=== PATIENT | female | born 1955 | race Caucasian/White ===

== ENCOUNTER 2023-09-22 21:35 | Emergency (ER) | payer MEDICARE, OTHER ==
[~2023-09-22] VITALS: Ht 165.1 cm; Wt 64.0 kg
[2023-09-22] MEDS: MAGNESIUM 2 G PREMIX 50 ML IV ONE (22:24)
[2023-09-22] MEDS: METHYLPREDNISOLONE SOD SUCC 125MG/2ML (ACT-O-VIAL) IV ONE (22:25)
[2023-09-22] MEDS: IPRATROPIUM/ALBUTEROL 0.5-3(2.5)MG/3ML NEB HHN ONE (22:28)
[2023-09-22 22:29] VITALS: PULSE 93; RESP 24; O2SAT 100
[2023-09-22] MEDS: ALBUTEROL (0.083%) 2.5MG/3ML NEB HHN ONE (22:29)
[2023-09-22 23:06] LABS: BASOPHILS % 0.5 % (0.0-2.0); EOSINOPHILS % 1.6 % (0.0-5.0); HEMATOCRIT. 39.5 % (36.0-48.0); HEMOGLOBIN. 13.4 g/dL (12.0-16.0); LYMPHOCYTES % 21.1 % (20.0-50.0); MEAN CORPUSCULAR HEMOGLOBIN 30.9 pg (28.0-32.0); MEAN CORPUSCULAR HGB CONC 33.8 g/dL (31.0-37.0); MEAN CORPUSCULAR VOLUME 91.3 fL (81.0-99.0); MONOCYTES % 11.5 % (2.0-8.0); NEUTROPHILS % 65.3 % (40.0-76.0); PLATELET 212 x1000/uL (130-400); RED BLOOD CELL COUNT 4.33 mill/uL (4.2-5.4); RED CELL DISTRIBUTION WIDTH 16.2 % (11.6-14.6); WHITE BLOOD COUNT 10.2 x1000/uL (4.5-11.0)
[2023-09-22 23:17] LABS: CHLORIDE 108 mEq/L (98-107); POTASSIUM 3.9 mEq/L (3.5-5.1); SODIUM 137 mEq/L (136-145)
[2023-09-22 23:18] LABS: CARBON DIOXIDE 24 mEq/L (21-32)
[2023-09-22 23:19] LABS: CALCIUM 9.2 mg/dL (8.7-10.4); INR 0.9; PARTIAL THROMBOPLASTIN TIME 25.4 sec (23.4-31.0); PROTHROMBIN TIME 10.2 sec (9.6-11.0)
[2023-09-22 23:23] LABS: CREATININE 0.9 mg/dL (0.6-1.0); GLUCOSE 130 mg/dL (70-105); TROPONIN I HIGH SENSITIVITY 9 ng/L (3.0-34)
[2023-09-22 23:24] LABS: UREA NITROGEN BLOOD 9 mg/dL (9-23)
[2023-09-22] MEDS: CEFTRIAXONE 2GM/50ML 50 ML IV ONE (23:43)
[2023-09-22] MEDS: DIAZEPAM 5 MG/ML 2ML SYR IV ONE (23:43)
[2023-09-23] MEDS: AZITHROMYCIN 500MG/250ML 250 ML IV STA (00:15)
[2023-09-23] MEDS ORDERED: ALBU6.7H15 INH (00:58)
[2023-09-23] MEDS ORDERED: AZIT250T12 MT (00:58)
[2023-09-23] MEDS ORDERED: P50 MT (00:58)
[2023-09-23] MEDS ORDERED: ALBU05 NEB (00:58)
[2023-09-23 01:44] VITALS: BP 119/67; PULSE 87; RESP 20; TEMP 98.6
== END 2023-09-23 01:35 | disposition home or self-care (01) ==
LOC: ER 21:35
DX: J44.1 Chronic obstructive pulmonary disease with (acute) exacerbation (principal); Z88.2 Allergy status to sulfonamides
CPT/HCPCS: 80048; 83880; 85025; 85610; 85730; 84484; 36415; 71045; 94640; 93005; 96368; 96365; 96366; 96375; 99285; 96367; J0456; J0696; J3475; J2930